=== PATIENT | male | born 2005 | race Caucasian/White ===

== ENCOUNTER 2023-05-10 13:05 | Outpatient (REF) | payer OTHER, SELFPAY ==
--- NOTE | ~2023-05-10 | MR_ITS ---
EXAMINATION: MR SHOULDER WITHOUT CONTRAST, RIGHT CLINICAL INFORMATION: Pain. Sports injury one month ago. COMPARISON: None available. TECHNIQUE: MRI of the shoulder without contrast was performed on a high-field scanner. FINDINGS: ROTATOR CUFF: Intact. No muscle atrophy or fatty infiltration. BICEPS: Normal. CORACOACROMIAL ARCH: The undersurface of the acromion is flat with no subacromial spur. There is edema signal around the acromioclavicular joint circumferentially. The acromioclavicular ligaments appear intact, though partial stripping is suspected at the acromial attachments of the more inferior acromioclavicular ligament. No significant displacement. Edema signal within the distal clavicle is associated with osteolysis and consistent with distal clavicular osteolysis. No subacromial-subdeltoid bursitis. Coracoclavicular ligaments are intact. LABRUM/CAPSULE: Foci of ill-defined increased T2 signal are present in the superior labrum extending from the anterosuperior 1 o'clock position through the posterior labrum to the posteroinferior 7 o'clock position, likely corresponding to a nondisplaced tear. Glenohumeral joint capsule is normal. No effusion. GLENOHUMERAL JOINT/MARROW: There is an old healed fracture of the anterior third of the glenoid with subtle residual cortical irregularity, chondral fissuring, and subcortical cystic change. Subtle flattening and cortical irregularity at the humeral head posterosuperiorly may correspond to an old Hill-Sachs injury. No significant depression. Humeral head is otherwise normal. No joint effusion. MR/MR shoulder RT wo con IMPRESSION: 1. 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 No displacement. A superimposed acromioclavicular ligament sprain or partial tear is possible. Coracoclavicular ligaments are normal. 2. Nondisplaced tear of the superior and posterior labrum. 3. Old healed fracture of the anterior third of the glenoid. Subtle flattening of the posterosuperior humeral head may correspond to an old Hill-Sachs injury. 4. Intact rotator cuff.
== END 2023-05-10 13:06 | disposition home or self-care (01) ==
LOC: HO.MRI 13:05
PROVIDERS: Visit Provider Family Medicine
DX: M25.511 Pain in right shoulder (principal)
CPT/HCPCS: 73221